=== PATIENT | female | born 1955 | race Caucasian/White ===

== ENCOUNTER 2018-11-06 19:24 | Emergency (ER) | payer OTHER ==
--- NOTE | 2018-11-06 20:29 | ED ---
Wound/Laceration HPI - General Chief Complaint: Wound/Laceration Stated Complaint: Finger Lac/Injury Time Seen by Provider: 11/06/18 19:40 Source: patient, RN notes reviewed Mode of arrival: ambulatory Limitations: no limitations - History of Present Illness Initial Comments: 63-year-old female presents emergency from chief complaint of right hand second digit injury. Patient states she was poked by appear to be a piece of ceramic. Patient remove this is morning. Patient put a Band-Aid on it but no associated some increasing pain but apparently was not tight. She remove the pain he noticed that there is purplish discoloration. Patient reports some discomfort to the finger states it just feels tight. No numbness or tingling. - Related Data Allergies Allergy/AdvReac Type Severity Reaction Status Date / Time No Known Allergies Allergy Verified 11/06/18 19:33 Review of Systems ROS Statement: Those systems with pertinent positive or pertinent negative responses have been documented in the HPI. ROS Other: All systems not noted in ROS Statement are negative. Past Medical History Past Medical History: Hypertension Additional Past Medical History / Comment(s): interstitial cysitis History of Any Multi-Drug Resistant Organisms: None Reported Additional Past Surgical History / Comment(s): ovariam cyst removed Past Psychological History: Anxiety, Depression Smoking Status: Never smoker Past Alcohol Use History: None Reported Past Drug Use History: None Reported General Exam Limitations: no limitations General appearance: alert, in no apparent distress Head exam: Present: atraumatic, normocephalic, normal inspection Respiratory exam: Present: normal lung sounds bilaterally. Absent: respiratory distress, wheezes, rales, rhonchi, stridor Cardiovascular Exam: Present: regular rate, normal rhythm, normal heart sounds. Absent: systolic murmur, diastolic murmur, rubs, gallop, clicks Extremities exam: Present: other (Right hand second digit there is bluish to purple discoloration finger is blanchable with cap refill less than 2 seconds patient reports mild discomfort there is a puncture wound noted on the palmar aspect of the digit) Skin exam: Present: warm, dry, intact, normal color. Absent: rash Course Vital Signs 11/06/18 19:30 Temperature 97.8 F Pulse Rate 80 Respiratory 19 Rate Blood Pressure 158/79 O2 Sat by Pulse 100 Oximetry Medical Decision Making - Medical Decision Making 63-year-old female presents emergency department for discoloration of her index finger. This is related to ecchymosis. Patient has good capillary refill, is neurovascularly intact this related to trauma from foreign body in her finger. I did discuss that she has no evidence of vascular injury this time will be discharged return parameters were discussed. Disposition Clinical Impression: Traumatic hematoma of finger Disposition: HOME SELF-CARE Condition: Stable Instructions (If sedation given, give patient instructions): Hematoma (ED) Additional Instructions: Please return to the Emergency Department if symptoms worsen or any other concerns. Is patient prescribed a controlled substance at d/c from ED?: No Referrals: Korina Leos MD [Primary Care Provider] - 1-2 days Time of Disposition: 21:03
[2018-11-06 21:22] VITALS: BP 143/72; PULSE 62; RESP 18; TEMP 98
--- NOTE | 2018-11-06 22:00 | XR ---
EXAM: XR Right Finger(s), 2 or More Views CLINICAL HISTORY: ITS.REASON XR Reason: Pain TECHNIQUE: Frontal, lateral and oblique views of finger(s) of the right hand. COMPARISON: None FINDINGS: Bones/joints: No displaced fracture or dislocation identified. Degenerative changes of the right DIP joint. Soft tissues: Mild soft tissue swelling. IMPRESSION: No displaced fracture or dislocation identified. Mild soft tissue swelling.
== END 2018-11-06 21:22 | disposition home or self-care (01) ==
LOC: EC 19:24
DX: S60.021A Contusion of right index finger without damage to nail, initial encounter (principal); W26.8XXA Contact with other sharp object(s), not elsewhere classified, initial encounter; Y92.009 Unspecified place in unspecified non-institutional (private) residence as the place of occurrence of the external cause
CPT/HCPCS: 99283

== ENCOUNTER 2024-05-22 22:44 | Emergency (ER) | payer MEDICARE, OTHER ==
[2024-05-22] MEDS: NITROGLYCERIN OINT 1 INCH/GM PACKET TOPICAL STA (23:36)
--- NOTE | 2024-05-23 00:30 | ED ---
Extremity Problem HPI - General Source: patient Mode of arrival: ambulatory <Aditya Izquierdo - Last Filed: 05/26/24 15:09> <Chana Nix - Last Filed: 06/03/24 16:13> - General Chief complaint: Extremity Problem,Nontraumatic Stated complaint: Finger numb Time Seen by Provider: 05/22/24 22:53 - History of Present Illness Initial comments: 68-year-old female presenting with chief complaint of right index finger pain. Patient has history of Raynaud's, she currently takes Cardizem. She was previously on aspirin but not a month ago her PCP had her stop aspirin. Today around 5 PM she started experiencing discomfort and numbness in the finger, there is also purpling around the PIP joint and swelling over the anterior portion. The finger feels tight and swollen. She denies any injury or trauma. She has tried running her fingers under hot water today and keeping them warm which normally works when she has a Raynaud's attack, however this is not helping her symptoms. She is not having any other symptoms. (Aditya Izquierdo) - Related Data Allergies Allergy/AdvReac Type Severity Reaction Status Date / Time adhesive AdvReac Rash/Hives Verified 05/23/24 06:01 adhesive tape AdvReac Rash/Hives Verified 05/23/24 06:01 Review of Systems ROS Other: All systems not noted in ROS Statement are negative. <Aditya Izquierdo - Last Filed: 05/26/24 15:09> ROS Other: All systems not noted in ROS Statement are negative. <Chana Nix - Last Filed: 06/03/24 16:13> ROS Statement: Those systems with pertinent positive or pertinent negative responses have been documented in the HPI. Past Medical History Past Medical History: Hypertension Additional Past Medical History / Comment(s): interstitial cysitis History of Any Multi-Drug Resistant Organisms: None Reported Additional Past Surgical History / Comment(s): ovariam cyst removed Past Psychological History: Anxiety, Depression Past Alcohol Use History: None Reported Past Drug Use History: None Reported <Aditya Izquierdo - Last Filed: 05/26/24 15:09> General Exam Limitations: no limitations General appearance: alert, in no apparent distress Head exam: Present: atraumatic, normocephalic, normal inspection Eye exam: Present: normal appearance, EOMI Neck exam: Present: normal inspection. Absent: meningismus Respiratory exam: Absent: respiratory distress Extremities exam: Absent: normal capillary refill (Right index finger has delayed capillary refill, the finger feels taut and there is duskiness near the PIP joint) Neurological exam: Present: alert, oriented X3 Psychiatric exam: Present: normal affect, normal mood <Aditya Izquierdo - Last Filed: 05/26/24 15:09> Course Vital Signs 05/22/24 05/23/24 05/23/24 22:46 00:18 04:02 Temperature 98.0 F 98.1 F Pulse Rate 108 H 103 H 96 Respiratory 18 19 18 Rate Blood Pressure 189/113 173/112 162/93 O2 Sat by Pulse 100 98 98 Oximetry 05/23/24 05:50 Temperature 98.2 F Pulse Rate 75 Respiratory 19 Rate Blood Pressure 165/90 O2 Sat by Pulse 98 Oximetry Medical Decision Making - Lab Data Result diagrams: 05/23/24 01:04 05/23/24 01:04 <Aditya Izquierdo - Last Filed: 05/26/24 15:09> - Lab Data Result diagrams: 05/23/24 01:04 05/23/24 01:04 <Chana Nix - Last Filed: 06/03/24 16:13> - Medical Decision Making Was pt. sent in by a medical professional or institution ([facility], [employer], urgent care, hospital, or penitentiary...) When possible be specific @ -No Did you speak to anyone other than the patient for history (EMS, parent, family, police, friend...)? What history was obtained from this source @ -No Did you review nursing and triage notes (agree or disagree)? Why? @ -I reviewed and agree with nursing and triage notes Were old charts reviewed (outside hosp., previous admission, EMS record, old EKG, old radiological studies, urgent care reports/EKG's, penitentiary records)? Report findings @ -No old charts were reviewed Differential Diagnosis (chest pain, altered mental status, abdominal pain women, abdominal pain men, vaginal bleeding, weakness, fever, dyspnea, syncope, headache, dizziness, GI bleed, back pain, seizure, CVA, palpatations, mental health, musculoskeletal)? @ -Differential Musculoskeletal Muscular strain, contusion, ligament sprain, fracture, arthritis, septic arthritis, bursitis, cellulitis, muscle spasm, nerve compression, DVT, arterial occlusion, herpes zoster, electrolyte abnormality, tumor.... This is not meant to be in all inclusive list EKG interpreted by me (3pts min.). @ -As above X-rays interpreted by me (1pt min.). @ -None done CT interpreted by me (1pt min.). @ -None done U/S interpreted by me (1pt. min.). @ -None done What testing was considered but not performed or refused? (CT, X-rays, U/S, labs)? Why? @ -None What meds were considered but not given or refused? Why? @ -None Did you discuss the management of the patient with other professionals (professionals i.e. , PA, [employer], lab, RT, psych nurse, social services, personal security specialist, teacher, air support control officer, medical case worker)? Give summary @ -I spoke with vascular surgeon on-call Dr. White, he states there is nothing he can do to intervene on this case and recommends contacting hand surgery. I spoke to orthopedist Dr. Rutledge, recommends continued heat applied to the finger and CTA of the upper extremity Was smoking cessation discussed for >3mins.? @ -No Was critical care preformed (if so, how long)? @ -No Were there social determinants of health that impacted care today? How? (Homelessness, low income, unemployed, alcoholism, drug addiction, t ransportation, low edu. Level, literacy, decrease access to med. care, intermediate, rehab)? @ -No Was there de-escalation of care discussed even if they declined (Discuss DNR or withdrawal of care, Hospice)? DNR status @ -No What co-morbidities impacted this encounter? (DM, HTN, Smoking, COPD, CAD, Cance r, CVA, ARF, Chemo, Hep., AIDS, mental health diagnosis, sleep apnea, morbid obesity)? @ -None Was patient admitted / discharged? Hospital course, mention meds given and route, prescriptions, significant lab abnormalities, going to OR and other pertinent info. @ -68-year-old female with history of Raynaud's presenting with chief complaint of discoloration, swelling, numbness to the right pointer finger. No injury or trauma. Patient has been applying heat all day but has not seen improvement. She also took aspirin at home, she was previously on aspirin daily but her PCP had her discontinued this about a month ago. We applied a nitro paste to the finger but this did not improve her symptoms. Contacted vascular surgery, they advised a hand surgery consult. Spoke with hand surgeon Dr. Rutledge, recommends obtaining CTA and continuing localized efforts to help with revascularization and improvement of symptoms. CTA is ordered. Patient is signed out to my attending Dr. Nix for further management and disposition Undiagnosed new problem with uncertain prognosis? @ -No Drug Therapy requiring intensive monitoring for toxicity (Heparin, Nitro, Insulin, Cardizem)? @ -No Were any procedures done? @ -No Diagnosis/symptom? @ -Default Acute, or Chronic, or Acute on Chronic? @ -Default Uncomplicated (without systemic symptoms) or Complicated (systemic symptoms)? @ -Default Side effects of treatment? @ -No Exacerbation, Progression, or Severe Exacerbation? @ -No Poses a threat to life or bodily function? How? (Chest pain, USA, NH, pneumonia, PE, COPD, DKA, ARF, appy, cholecystitis, CVA, Diverticulitis, Homicidal, Suicidal, threat to staff... and all critical care pts) @ -No (Aditya Izquierdo) Was patient admitted / discharged? Hospital course, mention meds given and route, prescriptions, significant lab abnormalities, going to OR and other pe rtinent info. @ -The patient is signed out to me pending CT angio of the upper extremity. Vascular structures are widely patent at this time. I did call and speak with Dr. Rutledge as he was the one who recommended the study. I reevaluated the patient in the area of induration is significantly less. Pain is more controlled and the area of discoloration has improved. I did discuss this with the patient. She feels improved at this time. She will restart taking her aspirin daily. Dr. Rutledge was happy to see the patient in the office for further management as he is a hand specialist. Patient was agreeable to this. She is to return for any new or worsening symptoms. Patient discharged home in stable condition Undiagnosed new problem with uncertain prognosis? @ -No Drug Therapy requiring intensive monitoring for toxicity (Heparin, Nitro, Insulin, Cardizem)? @ -No Were any procedures done? @ -No Diagnosis/symptom? @ -Acute finger pain, history of Raynaud's Acute, or Chronic, or Acute on Chronic? @ -Acute on chronic Uncomplicated (without systemic symptoms) or Complicated (systemic symptoms)? @ -Complicated Side effects of treatment? @ -No Exacerbation, Progression, or Severe Exacerbation? @ -Yes Poses a threat to life or bodily function? How? (Chest pain, USA, NH, pneumonia, PE, COPD, DKA, ARF, appy, cholecystitis, CVA, Diverticulitis, Homicidal, Suicidal, threat to staff... and all critical care pts) @ -No (Chana Nix) - Lab Data Lab Results 05/23/24 05/23/24 05/23/24 Range/Units 01:04 01:04 01:04 WBC 8.5 (3.8-10.6) k/uL RBC 4.25 (3.80-5.40) m/uL Hgb 13.0 (11.4-16.0) gm/dL Hct 40.5 (34.0-46.0) % MCV 95.3 (80.0-100.0) fL MCH 30.6 (25.0-35.0) pg MCHC 32.1 (31.0-37.0) g/dL RDW 11.9 (11.5-15.5) % Plt Count 320 (150-450) k/uL MPV 6.7 Neutrophils % 81 % Lymphocytes % 12 % Monocytes % 4 % Eosinophils % 2 % Basophils % 1 % Neutrophils # 6.9 (1.3-7.7) k/uL Lymphocytes # 1.0 (1.0-4.8) k/uL Monocytes # 0.3 (0-1.0) k/uL Eosinophils # 0.1 (0-0.7) k/uL Basophils # 0.1 (0-0.2) k/uL PT 9.7 L (10.0-12.5) sec INR 0.8 (<1.2) APTT 23.8 (22.0-30.0) sec Sodium 131 L (137-145) mmol/L Potassium 4.0 (3.5-5.1) mmol/L Chloride 91 L (98-107) mmol/L Carbon Dioxide 29 (22-30) mmol/L Anion Gap 11 mmol/L BUN 13 (7-17) mg/dL Creatinine 0.56 (0.52-1.04) mg/dL Est GFR (CKD-EPI)AfAm >90 (>60 ml/min/1.73 sqM) Est GFR (CKD-EPI)NonAf >90 (>60 ml/min/1.73 sqM) Glucose 115 H (74-99) mg/dL Calcium 9.6 (8.4-10.2) mg/dL Total Bilirubin 0.5 (0.2-1.3) mg/dL AST 44 H (14-36) U/L ALT 29 (4-34) U/L Alkaline Phosphatase 90 (38-126) U/L Total Protein 8.1 (6.3-8.2) g/dL Albumin 5.0 (3.5-5.0) g/dL Disposition <Aditya Izquierdo - Last Filed: 05/26/24 15:09> Is patient prescribed a controlled substance at d/c from ED?: No Time of Disposition: 05:39 <Chana Nix - Last Filed: 06/03/24 16:13> Clinical Impression: Raynaud disease Disposition: HOME SELF-CARE Condition: Stable Instructions (If sedation given, give patient instructions): Raynaud Disease (ED) Additional Instructions: Return to taking an aspirin. Follow up with Dr. Rutledge. Return to the ED for any new or worsening symptoms. Referrals: Yani Woodruff MD [Primary Care Provider] - 1-2 days Yahir Rutledge MD [STAFF PHYSICIAN] - 1-2 days
[2024-05-23 01:20] LABS: Basophils # (A) 0.1 k/uL (0-0.2); Basophils % (A) 1 %; Eosinophils # (A) 0.1 k/uL (0-0.7); Eosinophils % (A) 2 %; HCT 40.5 % (34.0-46.0); Lymphocytes % (A) 12 %; MCH 30.6 pg (25.0-35.0); MCHC 32.1 g/dL (31.0-37.0); MCV 95.3 fL (80.0-100.0); Mean Platelet Volume 6.7; Monocytes # (A) 0.3 k/uL (0-1.0); Monocytes % (A) 4 %; Neutrophils # (A) 6.9 k/uL (1.3-7.7); Neutrophils % (A) 81 %; Platelet Count 320 k/uL (150-450); RBC 4.25 m/uL (3.80-5.40); RDW 11.9 % (11.5-15.5); WBC 8.5 k/uL (3.8-10.6)
[2024-05-23 01:32] LABS: ALT 29 U/L (4-34); AST 44 U/L (14-36); African American GFR (CKD) >90 (>60 ml/min/1.73 sqM); Alkaline Phosphatase 90 U/L (38-126); Anion Gap 11 mmol/L; Blood Urea Nitrogen 13 mg/dL (7-17); Calcium 9.6 mg/dL (8.4-10.2); Carbon Dioxide 29 mmol/L (22-30); Chloride 91 mmol/L (98-107); Glucose 115 mg/dL (74-99); Non-African American GFR(CKD) >90 (>60 ml/min/1.73 sqM); Sodium 131 mmol/L (137-145); Total Bilirubin 0.5 mg/dL (0.2-1.3); Total Protein 8.1 g/dL (6.3-8.2)
[2024-05-23 01:34] LABS: INR 0.8 (<1.2); Partial Thromboplastin Time 23.8 sec (22.0-30.0); Prothrombin Time 9.7 sec (10.0-12.5)
--- NOTE | 2024-05-23 04:34 | CT ---
EXAM: CT Angiography of the Right Upper Extremity With Intravenous Contrast CLINICAL HISTORY: R finger duskiness. Reported right index finger pain, numbness and changing color. No reported trauma. TECHNIQUE: Axial computed tomographic angiography images of the right upper extremity with intravenous contrast. CTDI is 33.8 mGy and DLP is 208.7 mGy-cm. This CT exam was performed using one or more of the following dose reduction techniques: automated exposure control, adjustment of the mA and/or kV according to patient size, and/or use of iterative reconstruction technique. MIP reconstructed images were created and reviewed. CONTRAST: 100 mL Isovue-300 COMPARISON: No relevant prior studies available. FINDINGS: VASCULATURE: Right subclavian artery: No acute findings. No occlusion or significant stenosis. Right axillary artery: No acute findings. No occlusion or significant stenosis. Right brachial artery: No acute findings. No occlusion or significant stenosis. Right radial artery: The right radial artery is widely patent. No occlusion or significant stenosis. The radial artery extends beyond the wrist with the palmar arch extending medially to at least the fourth metacarpal bone region. Evaluation for a complete palmar arch is not possible on this examination. Right ulnar artery: The right radial and ulnar arteries are patent to the level of the wrist joint. The interosseous branch is patent. The ulnar artery is not clearly delineated beyond the wrist with regional motion artifact. No proximal occlusion or significant stenosis. Central arteries: The origin of the brachiocephalic artery is not included. The brachiocephalic artery is widely patent however. Digital arteries: The digital arteries are not identified in any digit of the right hand. UPPER EXTREMITY: Bones/joints: No acute fracture. No dislocation. Soft tissues: Unremarkable. No abnormal contrast enhancement. Thyroid: There is a heterogeneous left thyroid nodule measuring 2.3 x 2.8 cm with central heterogeneous hypoattenuation. There is a rounded nodular area of enhancement posteriorly. IMPRESSION: 1. The right subclavian, axillary and brachial arteries are widely patent without inflow disease. 2. The proximal right radial and ulnar arteries are widely patent with the right radial artery is slightly dominant. 3. The ulnar artery is not clearly delineated beyond the wrist with regional motion artifact. The radial artery extends beyond the wrist with the palmar arch extending medially to at least the fourth metacarpal bone region. Evaluation for a complete palmar arch is not possible on this examination. 4. The digital arteries are not identified in any digit of the right hand. This is presumably related to phase of imaging contrast; however, evaluation for distal digital artery occlusion is not possible on this examination. 5. There is a heterogeneous left thyroid nodule measuring 2.3 x 2.8 cm with central heterogeneous hypoattenuation. There is a rounded nodular area of enhancement posteriorly. Recommend nonemergent thyroid ultrasound, if not previously evaluated.
[2024-05-23 05:51] VITALS: BP 165/90; PULSE 75; RESP 19; TEMP 98.2
== END 2024-05-23 06:01 | disposition home or self-care (01) ==
LOC: EC 22:44
DX: I73.00 Raynaud's syndrome without gangrene (principal); Z88.8 Allergy status to other drugs, medicaments and biological substances
CPT/HCPCS: 36415; 80053; 85025; 85610; 85730; 73206; 99284; Q9967